=== PATIENT | female | born 1960 | race Caucasian/White ===

== ENCOUNTER 2019-04-06 08:49 | Emergency (ER) | payer OTHER ==
--- NOTE | 2019-04-06 10:09 | RADIOLOGY REPORT (SQ) ---
EXAM DESCRIPTION: ANKLE LEFT COMPLETE COMPLETED DATE/TIME: 04/06/2019 9:30 am REASON FOR STUDY: +swelling and pain COMPARISON: None. NUMBER OF VIEWS: Three views. TECHNIQUE: AP, lateral, and oblique without weight bearing radiographic images acquired of the left ankle. LIMITATIONS: None. FINDINGS: MINERALIZATION: Normal. BONES: Questionable minimal fragmentation medial malleolus that may relate to an old injury. Recomme nd clinical correlation. No significant osteophytes. JOINTS: No effusions. Degenerative change posteriorly talotibial joint SOFT TISSUES: Generalized moderate soft tissue swelling. OTHER: Large anterior and posterior heel spurs. IMPRESSION: Generalized soft tissue swelling. Possible minimal fragmentation medial malleolus that is probably old based on radiographic appearance. Degenerative changes posterior talotibial joint. Large anterior and posterior heel spurs. TECHNICAL DOCUMENTATION: JOB ID: [id number] [employer]- All Rights Reserved Reading location - IP/workstation name: [email or web address]
[2019-04-06 10:22] VITALS: BP 186/106
[2019-04-06] MEDS ORDERED: IBUPROFEN 800 MG TABLET PO ONE (10:24)
[2019-04-06] MEDS ORDERED: HYDROCHLOROTHIAZIDE 12.5 MG TABLET PO ONE (10:24)
[2019-04-06] MEDS ORDERED: LOSARTAN POTASSIUM 50 MG TABLET PO ONE (10:24)
--- NOTE | 2019-04-06 10:30 | ER Document Report ---
Addendum entered and electronically signed by JOE DOW FNP 04/06/19 10:50: Course - Re-evaluation Re-evalutation: 04/06/19 10:49 At time of discharge patient states she would like to have an ankle stirrup placed while in the emergency department as she is not sure if she can get a walking boot. I did inform the patient if we do the ankle stirrup she does not need to use her crutches that she has at home to help with rest of the foot. Patient verbalizes understanding. - Vital Signs Vital signs: Temp Pulse Resp BP Pulse Ox 98.3 F 87 16 186/106 H 98 04/06/19 08:53 04/06/19 08:53 04/06/19 08:53 04/06/19 10:22 04/06/19 08:53 Original Note: HPI - HPI Time Seen by Provider: 04/06/19 09:55 Pain Level: 5 Context: Patient is a 59-year-old female with a history of hypertension who presents to the emergency department with a chief complaint of left medial ankle pain. Patient states she originally injured the left ankle on March 18 when she was ambulating down a sidewalk and tripped over a 2 x 4 piece of wood. Patient states that she has been icing and using heat and Aleve for her discomfort. Patient reports that the swelling and discomfort had improved until she went to a function this past Wednesday and did a lot of walking. Patient states she did develop swelling after this event. Patient reports she has been taking Aleve with minimal relief. Patient states the pain is specifically around the left medial side of the ankle. Patient reports she is able to ambulate but with a lot of pain. Past Medical History - General Information source: Patient - Social History Smoking Status: Never Smoker Frequency of alcohol use: None Drug Abuse: None Lives with: Family Family History: Reviewed & Not Pertinent - Past Medical History Cardiac Medical History: Reports: Hx Hypertension Pulmonary Medical History: Reports: None EENT Medical History: Reports: None Neurological Medical History: Reports: None Endocrine Medical History: Reports: None Renal/ Medical History: Reports: Hx Kidney Stones Malignancy Medical History: Reports: None GI Medical History: Reports: Hx Gastroesophageal Reflux Disease Musculoskeletal Medical History: Reports None Skin Medical History: Reports None Psychiatric Medical History: Reports: None Traumatic Medical History: Reports: None Infectious Medical History: Reports: None Past Surgical History: Reports: Hx Hysterectomy Vertical Provider Document - CONSTITUTIONAL Agree With Documented VS: Yes Exam Limitations: No Limitations General Appearance: No Apparent Distress - INFECTION CONTROL TRAVEL OUTSIDE OF THE [place] IN LAST 30 DAYS: No - HEENT HEENT: Atraumatic, Normal ENT Exam, Normocephalic - NECK Neck: Normal Inspection - RESPIRATORY Respiratory: Breath Sounds Normal, No Respiratory Distress - CARDIOVASCULAR Cardiovascular: Regular Rate, Regular Rhythm - GI/ABDOMEN Gastrointestinal: Abdomen Soft, Abdomen Non-Tender - MUSCULOSKELETAL/EXTREMETIES Notes: There is edema to the left medial aspect of the left ankle. There is tenderness over the medial malleolus. There is no erythema, laceration, or open wounds. Patient does have a strong +2 dorsalis pedis and posterior tibial pulse. Patient is able to wiggle her toes, has good push and pull of the left foot although this does cause discomfort. There is no tenderness to palpation to the left lateral malar malleolus, dorsal or ventral aspect of the foot. - NEURO Level of Consciousness: Awake, Alert, Appropriate Course - Re-evaluation Re-evalutation: 04/06/19 10:34 I did discuss the results with Dr. Pereyra. She recommends the patient being placed in a hard walking boot. Her department does not offer a hard walking boot. I did discuss the options with the patient to include placing a temporary splint in the emergency department or her purchasing her own walking boot. Patient does report having crutches at home. Patient states she has a referral for her right chronic knee pain at orthopedics at [facility] in which she will follow-up with her ankle pain as well. Patient instructed to ice, elevate and rest to help us with swelling. Patient aware that she does also have large bone spurs. Patient was also noted to be hypertensive during her emergency room visit. Patient was medicated for pain with 800 mg of ibuprofen as she is driving. Patient states she has not been taking her losartan with hydrochlorothiazide as she was concerned it may drop her blood pressure. I did give patient a dose of this medication while in the emergency department and instructed her to take this as prescribed. Patient to follow-up with her primary care physician to have a recheck of her blood pressure. - Vital Signs Vital signs: Temp Pulse Resp BP Pulse Ox 98.3 F 87 16 186/106 H 98 04/06/19 08:53 04/06/19 08:53 04/06/19 08:53 04/06/19 10:22 04/06/19 08:53 - Diagnostic Test Radiology reviewed: Reports reviewed Radiology results interpreted by me: 04/06/19 10:25 Ankle X-Ray 04/06/19 00:00 IMPRESSION: Generalized soft tissue swelling. Possible minimal fragmentation medial malleolus that is probably old based on radiographic appearance. Degenerative changes posterior talotibial joint. Large anterior and posterior heel spurs. Discharge - Discharge Clinical Impression: Bone spur Malleolar fracture Qualifiers: Encounter type: initial encounter Fracture type: closed Laterality: left Qualified Code(s): S82.892A - Other fracture of left lower leg, initial encounter for closed fracture Condition: Stable Disposition: HOME, SELF-CARE Additional Instructions: Today you were seen in the emergency department for left ankle pain. Your x-ray did show a possible medial malleolus fracture that appeared to be old. This could have occurred during the original injury on March 18. Due to your increase in walking and activity on Wednesday this could have exacerbated the swelling and pain. We have offered to place you in a splint while in the emergency department or gave you the option to get a [facility] at [facility]. Use your crutches to stay off of the foot. Please get your walking boot today and use throughout the next week to rest the ankle and help and swelling. Use ice, elevation and rest as much as possible. If you continue to have discomfort please follow-up with orthopedics. Your blood pressure was also elevated during today's visit. We have given you your prescribed losartan with hydrochlorothiazide. Please take this prescription as prescribed at home daily. Please return to the emergency department for headache, worsening ankle pain, discoloration of the toes, numbness or tingling to the toes or any other concerning signs or symptoms. Walking Boot You are to use a "walking boot." This boot substitutes for a cast for certain fractures or other injuries of the ankle and foot. You must follow the doctor's instructions closely for proper healing to occur. Keep the boot on all the time, including during sleep. You may remove the boot for bathing ONLY if told to do so by the physician. The fit of the boot may be adjusted by inserting foam pads around the sides of the ankle, and by adjusting the tension in the straps. The boot should always fit snugly. If your foot is slipping around in the boot, or if pain occurs with walking, check the fit. If you can't get the fit right, return for re- examination. If there is unexpected pain under the boot, if blisters or sore spots develop, or if the boot is physically coming apart, return at once. Remember that you're welcome to come in at any time to have the fit of the boot checked and adjusted. Prescriptions: Tramadol HCl [Ultram 50 mg Tablet] 50 mg PO Q6HP PRN #15 tablet PRN Reason: Forms: Elevated Blood Pressure Referrals: QUANG MAY FNP [Primary Care Provider] - Follow up as needed
== END 2019-04-06 10:54 | disposition home or self-care (01) ==
LOC: ER 08:49
DX: S82.892A Other fracture of left lower leg, initial encounter for closed fracture (principal); M25.572 Pain in left ankle and joints of left foot; X58.XXXA Exposure to other specified factors, initial encounter; M77.32 Calcaneal spur, left foot; I10 Essential (primary) hypertension; T46.5X6A Underdosing of other antihypertensive drugs, initial encounter; T50.2X6A Underdosing of carbonic-anhydrase inhibitors, benzothiadiazides and other diuretics, initial encounter; Z91.128 Patient's intentional underdosing of medication regimen for other reason; Z91.14 Patient's other noncompliance with medication regimen
CPT/HCPCS: 99283

== ENCOUNTER 2019-07-09 11:19 | Emergency (ER) | payer OTHER ==
[2019-07-09 12:03] LABS: ABSOLUTE BASOPHILS # (AUTO) 0.1 10^3/uL (0.0-0.2); ABSOLUTE EOSINOPHILS # (AUTO) 0.2 10^3/uL (0.0-0.6); ABSOLUTE LYMPHOCYTES (AUTO) 2.2 10^3/uL (0.5-4.7); ABSOLUTE MONOCYTES (AUTO) 0.4 10^3/uL (0.1-1.4); ABSOLUTE NEUT (AUTO) 3.2 10^3/uL (1.7-8.2); EOSINOPHILS % (AUTO) 2.7 % (0-6); HEMATOCRIT 42.4 % (36.0-47.0); HEMOGLOBIN 14.4 g/dL (12.0-15.5); LYMPHOCYTES % (AUTO) 36.2 % (13-45); MEAN CORPUSCULAR HGB CONC 33.9 g/dL (32.0-36.0); MEAN CORPUSCULAR VOLUME 94 fl (80-97); PLATELET COUNT 279 10^3/uL (150-450); RED CELL DISTRIBUTION WIDTH 14.6 % (11.5-14.0); SEGMENTED NEUTROPHILS % (AUTO) 54.1 % (42-78); TOTAL CELLS COUNTED % (AUTO) 100 %
--- NOTE | 2019-07-09 12:10 | RADIOLOGY REPORT (SQ) ---
EXAM DESCRIPTION: CHEST 2 VIEWS COMPLETED DATE/TIME: 07/09/2019 11:59 am REASON FOR STUDY: chest pain COMPARISON: Two-view chest 04/07/2010 EXAM PARAMETERS: NUMBER OF VIEWS: two views TECHNIQUE: Digital Frontal and Lateral radiographic views of the chest acquired. RADIATION DOSE: NA LIMITATIONS: none FINDINGS: LUNGS AND PLEURA: No opacities, masses or pneumothorax. No pleural effusion. MEDIASTINUM AND HILAR STRUCTURES: No masses or contour abnormalities. HEART AND VASCULAR STRUCTURES: Heart normal size. No evidence for failure. BONES: No acute findings. HARDWARE: None in the chest. OTHER: No other significant finding. IMPRESSION: NO ACUTE RADIOGRAPHIC FINDING IN THE CHEST. TECHNICAL DOCUMENTATION: JOB ID: [id number] [email or web address]- All Rights Reserved Reading location - IP/workstation name: [email or web address]
[2019-07-09 12:22] LABS: ALBUMIN 4.3 g/dL (3.5-5.0); ALKALINE PHOSPHATASE 85 U/L (38-126); ANION GAP 8 (5-19); ASPARTATE AMINO TRANSFERASE 36 U/L (14-36); BILIRUBIN,DIRECT 0.1 mg/dL (0.0-0.4); BILIRUBIN,TOTAL 0.5 mg/dL (0.2-1.3); BLOOD UREA NITROGEN 8 mg/dL (7-20); CALCIUM 9.7 mg/dL (8.4-10.2); CARBON DIOXIDE 29 mmol/L (22-30); CHLORIDE 103 mmol/L (98-107); GLUCOSE 110 mg/dL (75-110); POTASSIUM 3.9 mmol/L (3.6-5.0); TOTAL PROTEIN 7.4 g/dL (6.3-8.2)
[2019-07-09] MEDS ORDERED: HYDROCHLOROTHIAZIDE 25 MG TABLET PO ONE (12:32)
--- NOTE | 2019-07-09 13:40 | ER Document Report ---
ED General - General Chief Complaint: High Blood Pressure Stated Complaint: BLOOD PRESSURE CONCERNS Time Seen by Provider: 07/09/19 11:42 Primary Care Provider: QUANG MAY FNP [Primary Care Provider] - Follow up in 3-5 days CHAVO RIDER MD [ACTIVE STAFF] - Follow up in 1 week Notes: 59 y/o female presents with chest discomfort that started this morning while watching TV. Pt states this is constant. Associated headache and tinnitus. Pt states she forgot to take her Micardis/HCTZ two days ago and has been having increased tinnitus and headache since then. Pt did take her blood pressure medication yesterday. Pt took 4 ASA 81 mg prior to arrival which did not change chest discomfort. Pt reports her PCP recently changed her dose of Micardis/HCTZ and stopped one of her other blood pressure medications 1.5 months ago and she has a follow up appointment for same this upcoming week. Pt denies dyspnea, nausea/vomiting, dizziness. TRAVEL OUTSIDE OF THE [place] IN LAST 30 DAYS: No - Related Data Allergies/Adverse Reactions: No Known Allergies Allergy (Verified 04/06/19 08:50) Past Medical History - Social History Smoking Status: Unknown if Ever Smoked Frequency of alcohol use: None Drug Abuse: None Family History: Reviewed & Not Pertinent Patient has suicidal ideation: No Patient has homicidal ideation: No - Past Medical History Cardiac Medical History: Reports: Hx Hypertension Renal/ Medical History: Reports: Hx Kidney Stones. Denies: Hx Peritoneal Dialysis GI Medical History: Reports: Hx Gastroesophageal Reflux Disease Past Surgical History: Reports: Hx Hysterectomy Review of Systems - Review of Systems Notes: Constitutional: Negative for fever. HENT: Negative for sore throat. Eyes: Negative for visual changes. Cardiovascular: Positive for chest pain. Respiratory: Negative for shortness of breath. Gastrointestinal: Negative for abdominal pain, vomiting or diarrhea. Genitourinary: Negative for dysuria. Musculoskeletal: Negative for back pain. Skin: Negative for rash. Neurological: Positive for headaches. Negative for weakness or numbness. 10 point ROS negative except as marked above and in HPI. Physical Exam - Vital signs Vitals: Temp Pulse Resp BP Pulse Ox 98.1 F 74 16 181/94 H 98 07/09/19 11:25 07/09/19 11:25 07/09/19 11:25 07/09/19 11:25 07/09/19 11:25 - Notes Notes: GENERAL: Well-appearing, well-nourished and in no acute distress. HEAD: Atraumatic, normocephalic. EYES: Extraocular movements intact, sclera anicteric, conjunctiva are normal. NECK: Normal range of motion, supple without lymphadenopathy or JVD. LUNGS: Breath sounds clear to auscultation bilaterally and equal. No wheezes rales or rhonchi. HEART: Regular rate and rhythm without murmurs, rubs or gallops. ABDOMEN: Soft, nontender. No guarding, no rebound. No masses appreciated. EXTREMITIES: Normal range of motion, no pitting or edema. No clubbing or cyanosis. NEUROLOGICAL: Cranial nerves II through XII grossly intact. Normal speech, normal gait. PSYCH: Normal mood, normal affect. SKIN: Warm, Dry, normal turgor, no rashes or lesions noted. Course - Re-evaluation Re-evalutation: 07/09/19 59 y/o female presents for chest discomfort and elevated blood pressure. Denies dyspnea, diaphoresis, nausea/vomiting. History of high cholesterol and hypertension. Family history positive for father with CAD, [place] in 60s. Pt was a smoker. HEART score is 3. Initial troponin is negative. Presentation of chest pain in an otherwise well appearing patient. Low clinical suspicion for ACS given clinical history, exam, EKG without ST elevations or depressions, and negative initial troponin. HEART score 3. PE also seems unlikely given clinical history, absence of dyspnea. Patient is PERC criteria negative. CXR without evidence of pneumothorax or pneumonia. No widened mediastinum. Aortic dissection also seems unlikely given history, symmetric pulses, CXR, and vitals. HEART Score: 3 07/09/19 17:41 Second troponin is negative. Chest pain in a patient without evidence of cardiac or other serious etiology on workup today. I discussed with patient that, based on their age, risk factors and emergency department testing today, the likelihood that their symptoms are related to a heart attack is very low (estimated risk of heart attack or over the next 30 days of less than 1%). The patient demonstrates decision making capacity and has verbalized an understanding of these risks to me. Based on this, the patient has chosen to follow-up as an outpatient. Usual chest pain return precautions reviewed. The patient states understanding and agreement with this plan. - Vital Signs Vital signs: Temp Pulse Resp BP Pulse Ox 98.1 F 74 16 178/98 H 96 07/09/19 11:25 07/09/19 11:25 07/09/19 17:01 07/09/19 17:01 07/09/19 17:01 - Laboratory Result Diagrams: 07/09/19 11:47 07/09/19 11:47 Laboratory results interpreted by me: 07/09/19 11:47 RDW 14.6 H Discharge - Discharge Clinical Impression: Chest discomfort Hypertension Qualifiers: Hypertension type: unspecified Qualified Code(s): I10 - Essential (primary) hypertension Condition: Stable Disposition: HOME, SELF-CARE Instructions: High Blood Pressure ([facility]) Additional Instructions: You were seen today for chest pain. The exact cause of your pain is unclear. However, based on your cardiac enzyme testing, chest x-ray, and EKG it does not appear that it is from an immediately life-threatening cause at this time. Although your testing here is normal is critical that you follow-up with your [facility] care physician for continued evaluation of this chest pain and possible stress testing. I recommended you see your physician within the next 24-48 hours to be evaluated for consideration of a stress test. Please return to emergency department immediately if you have worsening of your chest pain, shortness of breath, vomiting, become unable to exert yourself due to pain or difficulty breathing, you pass out, or have any pain that radiates into your arms, jaw, or back. Please also return if you have any additional symptoms that are concerning to you. Referrals: QUANG MAY FNP [Primary Care Provider] - Follow up in 3-5 days CHAVO RIDER MD [ACTIVE STAFF] - Follow up in 1 week
[2019-07-09 15:20] LABS: APPEARANCE,URINE CLEAR; BILIRUBIN,URINE NEGATIVE (NEGATIVE); COLOR,URINE STRAW; GLUCOSE, URINE NEGATIVE (NEGATIVE); KETONES,URINE NEGATIVE (NEGATIVE); LEUKOCYTE ESTERASE,URINE NEGATIVE (NEGATIVE); NITRITE,URINE NEGATIVE (NEGATIVE); PROTEIN,URINE NEGATIVE (NEGATIVE); URINE SPECIFIC GRAVITY 1.006; UROBILINOGEN,URINE NEGATIVE mg/dL (<2.0)
[2019-07-09 17:04] VITALS: BP 178/98
--- NOTE | 2019-07-09 22:15 | EKG REPORT ---
SEVERITY:- ABNORMAL ECG - SINUS RHYTHM PROBABLE LEFT ATRIAL ABNORMALITY NONSPECIFIC T ABNORMALITIES, LATERAL LEADS : Confirmed by: Marichuy Ramirez MD 09-Jul-2019 22:15:25
== END 2019-07-09 17:55 | disposition home or self-care (01) ==
LOC: ER 11:19
DX: R07.9 Chest pain, unspecified (principal); I10 Essential (primary) hypertension; R51 Headache; H93.19 Tinnitus, unspecified ear; Z79.899 Other long term (current) drug therapy; Z87.891 Personal history of nicotine dependence
CPT/HCPCS: 36415; 71046; 80053; 81001; 84484; 85025; 93005; 93010; 99284

== ENCOUNTER → 2020-07-31 | Outpatient (CLI) | payer OTHER ==
--- NOTE | 2020-07-31 08:09 | WOMENS IMAGING REPORT ---
EXAM DESCRIPTION: U/S ABDOMEN LIMITED IMAGES COMPLETED DATE/TIME: 07/31/2020 7:27 am REASON FOR STUDY: R10.13 EPIGASTRIC PAIN R10.13 EPIGASTRIC PAIN COMPARISON: 06/05/2013 TECHNIQUE: Dynamic and static grayscale images acquired of the abdomen and recorded on PACS. Additio nal selected color Doppler and spectral images recorded. LIMITATIONS: None. FINDINGS: PANCREAS: No masses. Visualized pancreatic duct normal caliber. LIVER: Fatty liver. The liver measures 16.3 cm in length, normal size. LIVER VASCULATURE: Normal directional flow of the main portal vein and hepatic veins. GALLBLADDER: No stones. The gallbladder wall measures 2.7 mm, normal wall thickness. No pericholecys tic fluid. ULTRASOUND-DETECTED FRIEND'S SIGN: Negative. INTRAHEPATIC DUCTS AND COMMON DUCT: CBD measures 3.0 mm in diameter, normal. The intrahepatic ducts normal caliber. No filling defects. INFERIOR VENA CAVA: Normal flow. AORTA: No aneurysm. RIGHT KIDNEY: The right kidney measures 11.2 x 5.0 x 6.1 cm, normal size. Normal echogenicity. No so lid or suspicious masses. No hydronephrosis. No calcifications. PERITONEAL AND RIGHT PLEURAL SPACE: No ascites or effusions. OTHER: No other significant findings. IMPRESSION: 1. Fatty liver. 2. Examination is otherwise unremarkable sonographically. TECHNICAL DOCUMENTATION: JOB ID: [id number] [email or web address]- All Rights Reserved Reading location - IP/workstation name: [email or web address]
== END ==
LOC: WI 06:48
PROVIDERS: ATTEND Internal Medicine Gastroenterology
DX: R10.13 Epigastric pain (principal); K76.0 Fatty (change of) liver, not elsewhere classified
CPT/HCPCS: 76705